=== PATIENT | female | born 2000 | race Caucasian/White ===

== ENCOUNTER 2018-10-02 00:55 | Emergency (ER) | payer MEDICAID ==
[~2018-10-02] VITALS: Ht 152.4 cm; Wt 54.4 kg
[2018-10-02 01:00] VITALS: BP 103/68
[2018-10-02 02:14] LABS: APPEARANCE,URINE SL CLOUDY (CLEAR); BILIRUBIN,URINE NEGATIVE (NEGATIVE); BLOOD, URINE NEGATIVE (NEGATIVE); COLOR,URINE YELLOW (YELLOW); LEUKOCYTE ESTERASE ,URINE TRACE (NEGATIVE); NITRITE, URINE NEGATIVE (NEGATIVE); PH,URINE 6.5 (5.0-9.0); UGLUCOSE NEGATIVE (NEGATIVE)
[2018-10-02 02:16] LABS: RBC,URINE 0-5 (RARE) /HPF (0-5); WBC,URINE 0-5 (RARE) /HPF (0-5)
[2018-10-02] MEDS: KETOROLAC 60 MG/2 ML VIAL IM ONE (04:24)
[2018-10-02 04:38] VITALS: BP 110/65
== END 2018-10-02 04:39 | disposition home or self-care (01) ==
LOC: MED 00:55
DX: J02.9 Acute pharyngitis, unspecified (principal)
CPT/HCPCS: 36415; 81001; 81025; 87086; 87804; 96372; 99283; J1885

== ENCOUNTER 2019-08-17 18:50 | Emergency (ER) | payer MEDICAID ==
[~2019-08-17] VITALS: Ht 154.9 cm; Wt 55.8 kg
[2019-08-17 19:36] VITALS: BP 124/64
[2019-08-17] MEDS ORDERED: ACETAMINOPHEN 325 MG TAB PO ONE (21:15)
[2019-08-17] MEDS ORDERED: IBUPROFEN 600 MG TAB PO ONE (21:15)
[2019-08-17 22:49] VITALS: BP 120/63
== END 2019-08-17 22:50 | disposition home or self-care (01) ==
LOC: MED 18:50
DX: R22.2 Localized swelling, mass and lump, trunk (principal); Z98.890 Other specified postprocedural states
CPT/HCPCS: 99283

== ENCOUNTER 2020-06-03 20:32 | Emergency (ER) | payer MEDICAID ==
[~2020-06-03] VITALS: Ht 154.9 cm; Wt 64.4 kg
[2020-06-03 20:34] VITALS: BP 127/75
--- NOTE | 2020-06-03 20:40 | NUR ---
PT AMBULATED TO BED #5
--- NOTE | 2020-06-03 20:45 | NUR ---
20 YO F BIB SELF FOR C/C OF 910 INTERMITTENT LLQ PAIN X1 DAY. PT STATES IT FEELS LIKE A SHARP STABBING PAIN THAT RADIATES TO RLQ WHEN SHE PUSHES ON LLQ. PT STATES SHE HAS ALSO BEEN HAVING DIARRHEA X1 DAY. DENIES FEVER, N/V, COUGH. PT TOOK "STOMACH MEDICINE" 2 HOURS AGO WITHOUT RELIEF OF SYMPTOMS. BOWELS SOUNDS NORMOACTIVE THROUGHOUT. BED LOCKED AND IN LOWEST POSITION. NKA NO MED HX NO RX
--- NOTE | 2020-06-03 22:09 | NUR ---
Dr. Farr examining patient.
[2020-06-03 22:28] VITALS: BP 127/75
== END 2020-06-03 22:28 | disposition home or self-care (01) ==
LOC: MED 20:32
DX: R10.32 Left lower quadrant pain (principal); R11.2 Nausea with vomiting, unspecified; R19.7 Diarrhea, unspecified
CPT/HCPCS: 81002; 81025; 99283

== ENCOUNTER 2021-03-25 04:10 | Emergency (ER) | payer MEDICAID ==
[~2021-03-25] VITALS: Ht 154.9 cm; Wt 67.6 kg
[2021-03-25 04:19] VITALS: BP 124/72
--- NOTE | 2021-03-25 04:19 | NUR ---
TO BED AMBULATORY
--- NOTE | 2021-03-25 04:30 | NUR ---
PT. IS A 21 Y/O FEMALE THAT CAME INTO ED WITH C/O OF VAGINAL PAIN. SHE STATES THAT THERE IS A "BALL" INSIDE HER VAGINA. DENIES N/V/D; SKIN IS PINK/WARM/DRY; AAOX4 WITH EVEN AND STEADY GAIT; HR EVEN AND REGULAR; PT DENIES ANY FEVER, CP, SOB, OR COUGH AT THIS TIME; VSS; PATIENT POSITIONED FOR COMFORT; HOB ELEVATED; BEDRAILS UP X2; BED DOWN. ER MD MADE AWARE OF PT STATUS. PMH: CHLAMYDIA ALLERGIES: NKA
--- NOTE | 2021-03-25 04:59 | NUR ---
Dr. Gamble examining patient.
--- NOTE | 2021-03-25 05:00 | NUR ---
PELVIC EXAM DONE, SWABS OBTAINED
[2021-03-25] MEDS ORDERED: METR500T1 PO (06:16)
[2021-03-25 06:41] VITALS: BP 124/72
--- NOTE | 2021-03-25 06:41 | NUR ---
Patient discharged with v/s stable. Written and verbal after care instructions given and explained. Patient alert, oriented and verbalized understanding of instructions. Ambulatory with steady gait. All questions addressed prior to discharge. ID band removed. Patient advised to follow up with PMD. Rx of FLAGYL given. Patient educated on indication of medication including possible reaction and side effects. Opportunity to ask questions provided and answered.
== END 2021-03-25 06:41 | disposition home or self-care (01) ==
LOC: MED 04:10
DX: N76.0 Acute vaginitis (principal)
CPT/HCPCS: 36415; 86592; 86694; 87210; 87491; 99283

== ENCOUNTER 2022-08-11 09:39 | Emergency (ER) | payer MEDICAID ==
[~2022-08-11] VITALS: Ht 154.9 cm; Wt 58.5 kg
[~2022-08-11 09:39] MED LIST: METR500T1 PO
[2022-08-11 09:47] VITALS: BP 145/119
--- NOTE | 2022-08-11 09:54 | NUR ---
Patient ambulated to bed 10 with steady/even gait.
--- NOTE | 2022-08-11 10:02 | NUR ---
22 y/o F BIB self from home c/o migraine headache x 2 days and diarrhea 1 episode "liquid/clear," nausea, decreased appetite x 1 day. Patient states migrane behind bilateral ears; 9, throbbing/intermittent, non-radiating alleviates with decreased lighting / laying down. Denies OTC meds today. Ibuprofen yesterday with minor relief. Pt also reports pelvic pain yesterday "cramp-like" that self-resolved. LMP: 07/18/22. Bed locked in lowest position, side rails x 1. PMH/Sx/Meds: neck cyst sx 2016 NKDA
[2022-08-11 10:38] LABS: BASOPHILS % (AUTO) 0.7 % (0.0-2.0); EOSINOPHILS % (AUTO) 0.7 % (0.0-4.0); HEMOGLOBIN 11.9 g/dL (12.0-16.0); LYMPHOCYTES % (AUTO) 23.3 % (20.5-51.1); MEAN CORPUSCULAR HEMOGLOBIN 28 pg (27-31); MEAN CORPUSCULAR HGB CONC 33 g/dL (33-37); MEAN CORPUSCULAR VOLUME 85.5 fL (80-94); MONOCYTES # (AUTO) 0.2 K/uL (0.8-1.0); MONOCYTES % (AUTO) 5.7 % (1.7-9.3); NEUTROPHILS % (AUTO) 69.6 % (42.2-75.2); PLATELET COUNT (AUTO) 175 K/uL (140-450); RED BLOOD CELL COUNT(AUTO) 4.21 MIL/uL (4.20-5.40); RED CELL DISTRIBUTION WIDTH 13.4 % (11.6-13.7); WHITE BLOOD COUNT (AUTO) 4.3 K/uL (4.8-10.8)
[2022-08-11 10:54] LABS: ALBUMIN 3.9 g/dL (3.4-5.0); ANION GAP 12.9 (8-16); CARBON DIOXIDE 25.8 mmol/L (21-32); CREATININE 0.8 mg/dL (0.6-1.3); POTASSIUM 4.7 mmol/L (3.5-5.1); TOTAL BILIRUBIN 0.5 mg/dL (0.0-1.0)
[2022-08-11] MEDS ORDERED: CYCLOBENZAPRINE 10 MG TAB PO ONE (11:15)
[2022-08-11] MEDS ORDERED: ACETAMINOPHEN EXTRA STRENGTH 500 MG TAB PO ONE (11:15)
[2022-08-11] MEDS ORDERED: CYCL-711 PO (11:26)
[2022-08-11] MEDS ORDERED: BISM262C53 PO (11:26)
[2022-08-11] MEDS ORDERED: IBUP-1842 PO (11:26)
[2022-08-11] MEDS ORDERED: ACET-10509 PO (11:26)
[2022-08-11] MEDS ORDERED: CRUSHER, PILL MC ONE (11:43)
--- NOTE | 2022-08-11 12:01 | NUR ---
PER ERMEdwardo CANCEL FLU TEST
[2022-08-11 12:06] VITALS: BP 126/70
--- NOTE | 2022-08-11 12:06 | NUR ---
Patient discharged with v/s stable. Written and verbal after care instructions given. Patient alert, oriented and verbalized understanding of instructions. Ambulatory with steady gait. All questions addressed prior to discharge. ID band removed. Patient advised to follow up with PMD. Rx of Acetaminophen, Pepto-Bismuth, Flexeril and Motrin given. Opportunity to ask questions provided and answered. WORK NOTE HANDED TO PATIENT.
--- NOTE | 2022-08-11 12:07 | NUR ---
The patient's care was reviewed and supervised by Antoinette Curran RN.
== END 2022-08-11 12:06 | disposition home or self-care (01) ==
LOC: MED 09:39
DX: G44.209 Tension-type headache, unspecified, not intractable (principal); R19.7 Diarrhea, unspecified; F12.90 Cannabis use, unspecified, uncomplicated; Z79.899 Other long term (current) drug therapy
CPT/HCPCS: 71045; 80053; 81002; 81025; 83690; 85025; 99283; Q0092

== ENCOUNTER 2023-01-16 19:51 | Emergency (ER) | payer MEDICAID ==
[~2023-01-16] VITALS: Ht 154.9 cm; Wt 61.7 kg
[~2023-01-16 19:51] MED LIST changes: +ACET-10509 PO; +BISM262C53 PO; +CYCL-711 PO; +IBUP-1842 PO
[2023-01-16 20:37] VITALS: BP 144/76
--- NOTE | 2023-01-16 20:42 | NUR ---
TO LOBBY FOLLOWING TRIAGE
--- NOTE | 2023-01-17 02:39 | NUR ---
CALLED TO RETURN TO TRIAGE, NO ANSWER. PT LWBS
== END 2023-01-17 02:39 | disposition left against medical advice (07) ==
LOC: MED 19:51
DX: R06.02 Shortness of breath (principal); F41.9 Anxiety disorder, unspecified; Z53.21 Procedure and treatment not carried out due to patient leaving prior to being seen by health care provider
CPT/HCPCS: 99281

== ENCOUNTER 2023-04-18 23:05 | Emergency (ER) | payer MEDICAID ==
[~2023-04-18] VITALS: Ht 154.9 cm; Wt 61.2 kg
[2023-04-18 23:10] VITALS: BP 134/80
--- NOTE | 2023-04-18 23:13 | NUR ---
TO LOBBY A/W BED AMBULATORY
--- NOTE | 2023-04-18 23:25 | NUR ---
PT TAKEN TO BED 8
[2023-04-18 23:43] LABS: APPEARANCE,URINE SL CLOUDY (CLEAR); BILIRUBIN,URINE NEGATIVE (NEGATIVE); BLOOD, URINE NEGATIVE (NEGATIVE); COLOR,URINE YELLOW (YELLOW); LEUKOCYTE ESTERASE ,URINE 1+ (NEGATIVE); NITRITE, URINE NEGATIVE (NEGATIVE); UGLUCOSE NEGATIVE (NEGATIVE)
--- NOTE | 2023-04-18 23:47 | NUR ---
Dr. Gonzalez examining patient.
[2023-04-18 23:49] LABS: RBC,URINE 0-5 /HPF (0-5)
--- NOTE | 2023-04-19 00:43 | NUR ---
wet mount sent to the lab
[2023-04-19] MEDS ORDERED: cefTRIAXone 500 MG in LIDOCAINE MPF 1% 1 ML IM ONE (01:00)
[2023-04-19] MEDS ORDERED: metroNIDAZOLE 250 MG TAB PO ONE (01:00)
[2023-04-19] MEDS ORDERED: DOXYCYCLINE 100 MG CAP PO SCH (01:00)
[2023-04-19] MEDS ORDERED: cefTRIAXone 500 MG VIAL ONE (01:04)
[2023-04-19] MEDS ORDERED: LIDOCAINE MPF 1% 5 ML ONE (01:04)
[2023-04-19] MEDS ORDERED: METR-435 PO (01:05)
[2023-04-19] MEDS ORDERED: DOXY-690 PO (01:05)
[2023-04-19] MEDS ORDERED: NITR100C19 PO (01:05)
[2023-04-19] MEDS ORDERED: FLUC150T PO (01:05)
[2023-04-19 01:15] VITALS: BP 134/80
--- NOTE | 2023-04-19 01:40 | NUR ---
Patient discharged with v/s stable. Written and verbal after care instructions given and explained. Patient alert, oriented and verbalized understanding of instructions. Ambulatory with steady gait. All questions addressed prior to discharge. ID band removed. Patient advised to follow up with PMD. Rx of vibramycin, diflucan, metronidazole, nitrofurant given. Patient educated on indication of medication including possible reaction and side effects. Opportunity to ask questions provided and answered.
== END 2023-04-19 01:40 | disposition home or self-care (01) ==
LOC: MED 23:05
DX: N76.0 Acute vaginitis (principal); B96.89 Other specified bacterial agents as the cause of diseases classified elsewhere; N39.0 Urinary tract infection, site not specified; Z20.2 Contact with and (suspected) exposure to infections with a predominantly sexual mode of transmission; Z79.899 Other long term (current) drug therapy
CPT/HCPCS: 81001; 81025; 87086; 87210; 87491; 96372; 99284; J0696; J2001; 99283

== ENCOUNTER 2024-02-06 14:09 | Emergency (ER) | payer SELFPAY ==
[~2024-02-06] VITALS: Ht 154.9 cm; Wt 61.0 kg
[~2024-02-06 14:09] MED LIST changes: +DOXY-690 PO; +FLUC150T PO; +METR-435 PO; +NITR100C19 PO
[2024-02-06 14:16] VITALS: BP 120/81; PULSE 80; TEMP 98.3; O2SAT 98
[2024-02-06] MEDS ORDERED: ERYT2GEL22 TP (14:56)
[2024-02-07] MEDS ORDERED: DIPH25TA53 PO (12:13)
== END 2024-02-06 15:08 | disposition home or self-care (01) ==
LOC: MED 14:09
DX: H01.004 Unspecified blepharitis left upper eyelid (principal); Z79.899 Other long term (current) drug therapy
CPT/HCPCS: 99283

== ENCOUNTER 2024-02-07 08:51 | Emergency (ER) | payer SELFPAY ==
[~2024-02-07] VITALS: Ht 154.9 cm; Wt 60.8 kg
[~2024-02-07 08:51] MED LIST changes: +ERYT2GEL22 TP
[2024-02-07 08:55] VITALS: BP 138/106; PULSE 82; RESP 18; TEMP 97.5; O2SAT 100
[2024-02-07] MEDS: KETOROLAC 30 MG/ML VIAL IM ONE (11:57)
[2024-02-07] MEDS ORDERED: DIPH25TA53 PO (12:13)
[2024-02-07 12:26] VITALS: BP 132/82; PULSE 77; RESP 16; TEMP 98; O2SAT 100
== END 2024-02-07 12:26 | disposition home or self-care (01) ==
LOC: MED 08:51
DX: H10.12 Acute atopic conjunctivitis, left eye (principal); Z79.899 Other long term (current) drug therapy
CPT/HCPCS: 81025; 96372; 99283; J1885; Q0163